=== PATIENT | male | born 1990 | race Caucasian/White ===

== ENCOUNTER 2021-06-04 11:21 | Emergency (ER) | payer SELFPAY ==
--- NOTE | 2021-06-04 11:24 | ED General ---
General Stated Complaint: PINWORM EXPOSURE Source of Information: Patient Exam Limitations: No Limitations (TYRELL KENNY APRN) History of Present Illness Date Seen by Provider: Jun 04, 2021 Time Seen by Provider: 11:23 Initial Comments To ER with his significant other both of whom were exposed to pinworms. Neither one has any symptoms. Timing/Duration: 1-2 Days Severity: Moderate Associated Systoms: Denies Symptoms (TYRELL KENNY APRN) Allergies and Home Medications Patient Home Medication List Home Medication List Reviewed: Yes (TYRELL KENNY APRN) Review of Systems Review of Systems Constitutional: see HPI EENTM: see HPI Respiratory: no symptoms reported Cardiovascular: no symptoms reported Genitourinary: no symptoms reported Musculoskeletal: no symptoms reported Skin: no symptoms reported Psychiatric/Neurological: No Symptoms Reported Hematologic/Lymphatic: No Symptoms Reported Immunological/Allergic: no symptoms reported (TYRELL KENNY APRN) Physical Exam Vital Signs Capillary Refill : (TYRELL KENNY APRN) Height, Weight, BMI Height: '" Weight: lbs. oz. kg; BMI Method: General Appearance: No Apparent Distress, WD/WN HEENT: PERRL/EOMI Neck: Full Range of Motion, Normal Inspection Respiratory: No Accessory Muscle Use, No Respiratory Distress Extremity: Normal Inspection, Normal Range of Motion Neurologic/Psychiatric: Alert, Oriented x3 Skin: Normal Color, Warm/Dry (TYRELL KENNY APRN) Progress/Results/Core Measures Suspected Sepsis SIRS Temperature: Pulse: Respiratory Rate: Blood Pressure / Mean: (TYRELL KENNY APRN) Results/Orders Vital Signs/I&O Capillary Refill : (TYRELL KENNY APRN) Departure Impression Primary Impression: pinworm exposure Disposition: 01 HOME, SELF-CARE Condition: Stable Departure-Patient Inst. Decision time for Depature: 11:23 (TYRELL KENNY APRN) Referrals: NO,LOCAL PHYSICIAN (PCP/Family) Primary Care Physician Patient Instructions: Pinworms Add. Discharge Instructions: [facility]. [facility] medication and take as directed. This is [id number] and does not require prescription. ATTENDING PHYSICIAN NOTE: I was physically present as attending physician in the emergency department during the care of this patient, but I was not directly involved in the decision making or delivery of care for this patient. (RILEY CARTER MD) TYRELL KENNY APRN Jun 04, 2021 11:24 RILEY CARTER MD Jun 09, 2021 07:58
== END 2021-06-04 11:25 | disposition home or self-care (01) ==
LOC: ER 11:23
DX: Z11.6 Encounter for screening for other protozoal diseases and helminthiases (principal)